=== PATIENT | male | born 1995 | race Caucasian/White ===

== ENCOUNTER 2018-01-27 19:32 | Emergency (ER) | payer OTHER ==
[2018-01-27 19:39] VITALS: BP 119/85
[2018-01-27] MEDS ORDERED: BACITRACIN OINT TOP STA (20:46)
[2018-01-27] MEDS ORDERED: IBUPROFEN 800 MG TABLET PO STA (20:47)
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
== END 2018-01-27 21:05 | disposition home or self-care (01) ==
LOC: ED 19:32
DX: T22.212A Burn of second degree of left forearm, initial encounter (principal); T22.232A Burn of second degree of left upper arm, initial encounter; T23.262A Burn of second degree of back of left hand, initial encounter; X10.2XXA Contact with fats and cooking oils, initial encounter; Y93.G3 Activity, cooking and baking; F17.200 Nicotine dependence, unspecified, uncomplicated
CPT/HCPCS: 99282; 99283; A9270